=== PATIENT | female | born 1985 | race Caucasian/White ===

== ENCOUNTER 2018-08-04 13:17 | Emergency (ER) | payer MEDICAID ==
[~2018-08-04] VITALS: Ht 157.5 cm; Wt 70.5 kg
[2018-08-04] MEDS ORDERED: LIDOCAINE 5% TRANSDERMAL PATCH TD ONE (17:15)
[2018-08-04] MEDS ORDERED: IBUPROFEN 600 MG TABLET PO ONE (17:15)
[2018-08-04] MEDS ORDERED: METHOCARBAMOL 500 MG TABLET PO ONE (17:15)
[2018-08-04 18:02] VITALS: BP 116/72
== END 2018-08-04 18:06 | disposition home or self-care (01) ==
LOC: EMS 13:19
DX: M54.41 Lumbago with sciatica, right side (principal); G89.29 Other chronic pain
CPT/HCPCS: 99284